=== PATIENT | male | born 1980 | race Caucasian/White ===

== ENCOUNTER 2017-03-26 14:09 | Emergency (ER) | payer OTHER ==
[~2017-03-26] VITALS: Ht 172.7 cm; Wt 63.5 kg
[2017-03-26 14:14] VITALS: BP 111/67
--- NOTE | 2017-03-26 14:41 | ED ANKLE/FOOT INJURY COMPLAINT ---
History of Present Illness General Chief Complaint: Foot or Ankle Injury Stated Complaint: L FT INJURY Source: patient, old records Exam Limitations: no limitations Vital Signs & Intake/Output Vital Signs & Intake/Output Vital Signs Date Time Temp Pulse Resp B/P B/P Pulse O2 O2 Flow FiO2 Mean Ox Delivery Rate 03/26 1414 98.6 73 15 111/67 95 Room Air Room Air Allergies Coded Allergies: No Known Allergies (03/26/17) Triage Note: PT FOR L ANKLE PAIN. PT ROLLED ANKLE 1 WEEK AGO AND NOW REPORTS SWELLING AND BRUISING. HURTS TO PUT WEIGHT ON IT. TOOK MOTRIN WITHOUT RELIEF. Triage Nurses Notes Reviewed? yes Occurred: last week Duration: week(s): (1), constant Timing: recent history Severity: mild Severity Numbers: 5 Pain/Injury Location: Left: Ankle. Method of Injury: twisted Modifying Factors: Improves With: rest. Worsens With: movement. Associated Symptoms: swelling HPI: 37-year-old male presents to ER complaining of persistent one-week history of left lateral ankle pain after he twisted his foot. He states the pain has been persistent he's been able to walk however states pain is worse with weightbearing. He is not taken anything for his symptoms. No foot toe knee or hip pain no back pain. He denies any other complaints she has not sought care for the symptoms until today. (PITER KNOX) Past History Travel History Traveled to [place] past 21 day No Medical History Any Pertinent Medical History? 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 No (PITER KNOX) Review of Systems Review of Systems Constitutional: Reports: see HPI. All Other Systems: Reviewed and Negative Comments Review of systems: See HPI, All other systems negative. Constitutional, no chills no fever, no malaise HEENT: no sore throat no congestion, no ear pain Cardiovascular: No chest pain , no palpitation Skin: no rashes, no change in skin Respiratory: No dyspnea no cough no sputum no hemoptysis GI: No nausea no vomiting, Muscle skeletal: joint pain, no joint swelling, no back pain, no neck pain, Neurologic: no headache Psych: No stress Heme/endocrine: No bruising Immunology: No lymphadenopathy (PITER KNOX) Physical Exam Physical Exam General Appearance: well developed/nourished, no apparent distress, alert Leg/Knee/Thigh Left: normal range of motion Comments: Well-developed well-nourished patient in no apparent distress. HEENT: Atraumatic, extraocular motion intact Neck: Supple, FROM Back: FROM Cardiovascular: Regular rate and rhythms no murmurs rubs Respiratory: CNo respiratory distress. Patient speaking in full complete sentences. Breath sounds clear to auscultation bilaterally: NO W/R/R Upper Extremities: full range of motion Hip/Pelvis: Atraumatic/Stable. FROM. No pain with pelvic compression Knee: Atraumatic/stable. FROM. No joint swelling, no effusion. No laxity.No pain with ROM Leg: Atraumatic. Nontender. No edema, 5 out of 5 strength in the lower extremity, normal dorsiflexion of great toe bilaterally, gross sensation is intact, Ankle/Foot: Ankle with moderate tenderness laterally over the lateral ligaments. No bony tenderness. No medial tenderness. Range of motion is near full but somewhat limited due to pain. No instability is noted. Skin is intact, No swelling, No ecchymosis noted. The foot is neurovascularly intact with sensation and motor grossly intact. There is no foot tenderness or fifth metatarsal tenderness. Able to move all toes. Palpable and intact achilles tendon. There is no proximal tib/fib tenderness Pulses: Normal/equal DP/PT pulses bilaterally. Brisk cap refill Neuro: awake, alert, and oriented to person, place and time. There were no obvious focal neurologic abnormalities. Skin: Warm & dry;No appreciable rash on exposed skin Psych: Mood affect normal, normal memory normal judgment. (PITER KNOX) Progress Differential Diagnosis: fracture, dislocation, sprain, contusion, compartmental syndrome Plan of Care: Orders Procedure Date/time Status Durable Medical Equipment 03/26 1511 Active Discussed with patient his x-ray results need for Rice. Crutches Jung wrap applied advised follow-up with orthopedist if symptoms persist. (PITER KNOX) Diagnostic Imaging: Viewed by Me: Radiology Read. Discussed w/RAD: Radiology Read. Radiology Impression: PATIENT: LARISSA SANCHEZ PRESENT AGE: 37 PATIENT ACCOUNT NO: [id number] : 81 LOCATION: [facility] ORDERING PHYSICIAN: PITER TAN SERVICE DATE: 03/26/17 EXAM TYPE: RAD - XRY- ANKLE 3 OR MORE VIEWS L EXAMINATION: XR ANKLE, LEFT CLINICAL INFORMATION: Pain COMPARISON: 09/01/2007 TECHNIQUE: AP, lateral, and mortise views of the left ankle. FINDINGS: There is no acute fracture or dislocation of the left ankle. The ankle mortise is normal and symmetric in appearance. The subtalar joint is unremarkable. There is mild soft tissue swelling along the anterior aspect of the ankle joint. IMPRESSION: No acute fracture or dislocation. DICTATED BY: THERESE LOZADA MD DATE/TIME DICTATED:03/26/171500 FEEDER SWITCHBOARD OPERATOR:NIGEL DATE/TIME TRANSCRIBED:03/26/171500 CONFIDENTIAL, DO NOT COPY WITHOUT APPROPRIATE AUTHORIZATION. <Electronically signed in Other Vendor System> SIGNED BY: THERESE LOZADA MD 03/26/17 1506 (PITER KNOX) Departure Departure Time of Disposition: 1509 Disposition: HOME OR SELF CARE Condition: Stable Clinical Impression Primary Impression: Ankle sprain Referrals: JOHNY DESAI,MAURO Toney. PATIENT HAS NO PRIMARY CARE DR (PCP/Family) Additional Instructions: REST, ICE, TYLENOL OR MOTRIN. JUNG WRAP CRUTCHES DISCUSSED. FOLLOW UP WITH ORTHOPEDIST DR LOPEZ IF SYMPTOMS PERSIST. RETURN WITH ANY CONCERNS Departure Forms: Customer Survey General Discharge Information (PITER KNOX) PA/WORKERS COMPENSATION ADJUSTER Co-Sign Statement Statement: ED Attending supervision documentation- I saw and evaluated the patient. I have also reviewed all the pertinent lab results and diagnostic results. I agree with the findings and the plan of care as documented in the PA's/WORKERS COMPENSATION ADJUSTER's documentation. x I have reviewed the ED Record and agree with the PA's/WORKERS COMPENSATION ADJUSTER's documentation. [] Additions or exceptions (if any) to the PAs/WORKERS COMPENSATION ADJUSTER's note and plan are summarized below: [] (CASIMIRO DESAI,ALEXANDER)
--- NOTE | 2017-03-26 15:06 | RADIOLOGY REPORT ---
EXAMINATION: XR ANKLE, LEFT CLINICAL INFORMATION: Pain COMPARISON: 09/01/2007 TECHNIQUE: AP, lateral, and mortise views of the left ankle. FINDINGS: There is no acute fracture or dislocation of the left ankle. The ankle mortise is normal and symmetric in appearance. The subtalar joint is unremarkable. There is mild soft tissue swelling along the anterior aspect of the ankle joint. IMPRESSION: No acute fracture or dislocation.
== END 2017-03-26 15:26 ==
LOC: ERH 14:09
DX: S93.402A Sprain of unspecified ligament of left ankle, initial encounter (principal); X58.XXXA Exposure to other specified factors, initial encounter; Y92.9 Unspecified place or not applicable; Y93.9 Activity, unspecified
CPT/HCPCS: 73610-LT

== ENCOUNTER 2018-07-03 10:07 | Emergency (ER) | payer OTHER ==
[~2018-07-03] VITALS: Ht 177.8 cm; Wt 61.2 kg
[~2018-07-03 10:07] MED LIST: PREDNISONE20 M1 PO; PROVENTIL HFA6.7 GM INH; ROBITUSSIN15 MG PO; ZITHROMAX250 M2 PO
[2018-07-03 11:32] LABS: ABSOLUTE BASOPHIL COUNT 0.1 /CUMM (0.0-0.2); ABSOLUTE EOSINOPHIL COUNT 0.2 /CUMM (0.0-0.7); ABSOLUTE GRANULOCYTE CT 6.1 /CUMM (1.4-6.5); ABSOLUTE MONOCYTE COUNT 0.9 /CUMM (0.10-0.60); BASOPHIL % 0.7 % (0.0-2.0); EOSINOPHIL % 2.4 % (0-5); GRANULOCYTE % 65.8 % (42.2-75.2); HEMATOCRIT 38.1 % (42-52); MEAN CORPUSCULAR HGB 30.4 PG (27.0-31.0); MEAN CORPUSCULAR HGB CONC 34.1 G/DL (33.0-37.0); MEAN CORPUSCULAR VOLUME 89.2 FL (80.0-94.0); MEAN PLATELET VOLUME 8.9 FL (7.4-10.4); PLATELET COUNT 273 /CUMM (130-400); RBC DISTRIBUTION WIDTH 13.9 % (11.5-14.5); RED BLOOD CELL CT 4.28 /CUMM (4.70-6.10); WHITE BLOOD CELL COUNT 9.3 /CUMM (4.8-10.8)
[2018-07-03 11:42] LABS: PTT 33 SEC (25-37)
--- NOTE | 2018-07-03 13:01 | CT SCAN REPORT ---
EXAMINATION: CT ABDOMEN AND PELVIS WITH AND WITHOUT CONTRAST CLINICAL INFORMATION: Diffuse lower abdominal pain. Bright red blood per rectum. Presumptive diagnosis of GI bleeding. COMPARISON: CT scan of the abdomen and pelvis dated 11/08/2006. TECHNIQUE: Multidetector CT volumetric acquisition of the abdomen and pelvis was performed before and after the administration of 95 mL of intravenous Optiray 320. The study was performed as a 3 phase exam with precontrast, arterial phase and three-minute delay images obtained. The data set was reformatted in the sagittal and coronal planes and reviewed on an independent workstation. 3-D imaging was not performed. DLP: 594.74 mGy-cm. FINDINGS: LOWER CHEST: Included lung bases unremarkable. LIVER, GALLBLADDER, BILIARY TREE: Liver normal size and attenuation. No focal cystic or solid mass or intra-or extrahepatic ductal dilatation. Hepatic and portal veins patent. Gallbladder partially distended and within normal limits. PANCREAS: Normal. No ductal dilatation, mass, or surrounding stranding. SPLEEN: Normal size and appearance. Splenic vein patent. Small accessory splenule is seen along the inferior margin of the spleen. ADRENAL GLANDS AND KIDNEYS: Adrenal glands normal. Kidneys bilaterally symmetric in size and function. No focal mass, hydronephrosis, nephrolithiasis or perinephric stranding. URETERS AND BLADDER: Ureters decompressed and within normal limits. Bladder partially distended and within normal limits. PELVIC ORGANS: Unremarkable. GASTROINTESTINAL TRACT: Normal. Small and large bowel loops decompressed. Appendix is surgically absent. LYMPHOVASCULAR STRUCTURES: Abdominal aorta normal in caliber and appearance. The branch vessels are widely patent. No periaortic collections. No abdominal or pelvic adenopathy or free fluid collection. BONES: Mild loss in height of the L1 and L5 vertebral bodies is now seen with prominent Schmorl's nodes, new compared to 11/08/2006. Bony structures otherwise unremarkable. IMPRESSION: Unremarkable examination. No source of active bleeding is identified on this exam. Close clinical correlation is requested to assess need for additional follow-up imaging.
--- NOTE | 2018-07-03 13:08 | ED GI/GU/ABDOMINAL COMPLAINT ---
History of Present Illness General Chief Complaint: Abdominal Pain/Flank Pain Stated Complaint: RECTAL BLEED Source: patient Exam Limitations: no limitations Vital Signs & Intake/Output Vital Signs & Intake/Output ED Intake and Output 07/04 0000 07/03 1200 Intake Total 0 Output Total Balance 0 Intake, Oral 0 Patient 135 lb Weight Weight Estimated Measurement Method Allergies Coded Allergies: No Known Allergies (07/04/18) Reconcile Medications No Known Home Medications Triage Note: PT TO ED C/O RECTAL BLEEDING SINCE LAST NIGHT. HAS HAPPENED X 2 SINCE LAST NIGHT. DENIES N/V. DENIES S/S. Triage Nurses Notes Reviewed? yes Onset: Abrupt Duration: day(s): (1), constant, continues in ED Timing: single episode today Quality/Severity: cramping, fullness Severity Numbers: 7 Location: generalized abdomen Radiation: no radiation Activities at Onset: none Prior Abdominal Problems: none No Modifying Factors: none HPI: 38-year-old male with no medical history presents for evaluation of rectal bleeding. Patient reports that on 2 occasions today during a bowel movement he noticed bright red blood in the toilet. He denies any diarrhea but clots or melena. He is not anticoagulated. He denies any pain during the bowel movements. He does report some lower abdominal pain diffusely. No dizziness or lightheadedness no fevers. He's never had this before. No family history of colon cancer. Past History Travel History Traveled to [place] past 21 day No Medical History Any Pertinent Medical History? 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 No Review of Systems Review of Systems Constitutional: Reports: no symptoms. EENTM: Reports: no symptoms. Respiratory: Reports: no symptoms. Cardiovascular: Reports: no symptoms. GI: Reports: see HPI, abdominal pain. Genitourinary: Reports: no symptoms. Musculoskeletal: Reports: no symptoms. Skin: Reports: no symptoms. Neurological/Psychological: Reports: no symptoms. Hematologic/Endocrine: Reports: no symptoms. Immunologic/Allergic: Reports: no symptoms. All Other Systems: Reviewed and Negative Physical Exam Physical Exam General Appearance: well developed/nourished, no apparent distress, alert, awake Head: atraumatic, normal appearance Eyes: Bilateral: normal appearance, PERRL, EOMI. Ears, Nose, Throat, Mouth: moist mucous membrane Neck: normal inspection, supple, full range of motion Respiratory: normal breath sounds, chest non-tender, no respiratory distress, lungs clear Cardiovascular: regular rate/rhythm, normal peripheral pulses Peripheral Pulses: 2+ radial (R), 2+ radial (L) Gastrointestinal: normal bowel sounds, soft, no organomegaly, tenderness (LOWER ABDOMEN ) Rectal: normal inspection, normal rectal tone, heme positive stool (NO GROSS BLOOD) Back: normal inspection, normal range of motion, no vertebral tenderness Extremities: normal range of motion Neurologic/Psych: no motor/sensory deficits, awake, alert, oriented x 3, normal gait Skin: intact, normal color, warm/dry Core Measures ACS in differential dx? No Sepsis Present: No Sepsis Focused Exam Completed? No Progress Differential Diagnosis: appendicitis, biliary colic, bowel obstruction, colon cancer, cholecystitis, diverticulitis, gastritis, hernia, inflamm bowel dis, pancreatitis, prostatitis, peptic ulcer, PUD/GERD, SBO, testicular torsion, ureterolithiasis, urinary retention, urethritis, UTI/pyelo Plan of Care: Orders Procedure Date/time Status Add-on Test (ER Only) 07/03 1102 Active MISTAKE 07/03 1010 Active PARTIAL THROMBOPLASTIN TIME 07/03 1010 Complete PROTHROMBIN TIME 07/03 1010 Complete LIPASE 07/03 1010 Complete C-REACTIVE PROTEIN 07/03 1010 Complete COMPREHENSIVE METABOLIC PANEL 07/03 1010 Complete CBC WITHOUT DIFFERENTIAL 07/03 1010 Complete Laboratory Tests 07/03/18 1109: Anion Gap 7, Estimated GFR > 60, BUN/Creatinine Ratio 23.8, Glucose 101 H, Calcium 9.2, Total Bilirubin 0.2, AST 27, ALT 23, Alkaline Phosphatase 70, C- Reactive Prot, Quant 0.6, Total Protein 6.5, Albumin 4.0, Globulin 2.5, Albumin/ Globulin Ratio 1.6, Lipase 22 L, PT 10.0, INR 0.92, APTT 33, CBC w Diff NO MAN DIFF REQ, RBC 4.28 L, MCV 89.2, MCH 30.4, MCHC 34.1, RDW 13.9, MPV 8.9, Gran % 65.8, Lymphocytes % 21.5, Monocytes % 9.6 H, Eosinophils % 2.4, Basophils % 0.7 , Absolute Granulocytes 6.1, Absolute Lymphocytes 2.0, Absolute Monocytes 0.9 H , Absolute Eosinophils 0.2, Absolute Basophils 0.1 Patient is here with bright red blood per rectum on 2 occasions today. He is not anticoagulated. He also has no abdominal pain. Never had this before. He is not orthostatic vital signs are stable. Basic blood work was obtained and shows a stable hemoglobin. A CTA of the abdomen and pelvis is negative for acute findings. Patient is not orthostatic. He appears clinically well. He'll be referred to gastroenterology for further evaluation and treatment discussed return precautions case discussed with Dr. Graham he agrees. Diagnostic Imaging: Viewed by Me: CT Scan. Discussed w/RAD: CT Scan. Radiology Impression: PATIENT: LARISSA SANCHEZ PRESENT AGE: 38 PATIENT ACCOUNT NO: [id number] : 81 LOCATION: [facility] ORDERING PHYSICIAN: Deon TAN SERVICE DATE: 07/03/18 EXAM TYPE: CAT - CT ABD & PELVIS ANGIOGRAM EXAMINATION: CT ABDOMEN AND PELVIS WITH AND WITHOUT CONTRAST CLINICAL INFORMATION: Diffuse lower abdominal pain. Bright red blood per rectum. Presumptive diagnosis of GI bleeding. COMPARISON: CT scan of the abdomen and pelvis dated 11/08/2006. TECHNIQUE: Multidetector CT volumetric acquisition of the abdomen and pelvis was performed before and after the administration of 95 mL of intravenous Optiray 320. The study was performed as a 3 phase exam with precontrast, arterial phase and three-minute delay images obtained. The data set was reformatted in the sagittal and coronal planes and reviewed on an independent workstation. 3-D imaging was not performed. DLP: 594.74 mGy-cm. FINDINGS: LOWER CHEST: Included lung bases unremarkable. LIVER, GALLBLADDER, BILIARY TREE: Liver normal size and attenuation. No focal cystic or solid mass or intra-or extrahepatic ductal dilatation. Hepatic and portal veins patent. Gallbladder partially distended and within normal limits. PANCREAS: Normal. No ductal dilatation, mass, or surrounding stranding. SPLEEN: Normal size and appearance. Splenic vein patent. Small accessory splenule is seen along the inferior margin of the spleen. ADRENAL GLANDS AND KIDNEYS: Adrenal glands normal. Kidneys bilaterally symmetric in size and function. No focal mass, hydronephrosis, nephrolithiasis or perinephric stranding. URETERS AND BLADDER: Ureters decompressed and within normal limits. Bladder partially distended and within normal limits. PELVIC ORGANS: Unremarkable. GASTROINTESTINAL TRACT: Normal. Small and large bowel loops decompressed. Appendix is surgically absent. LYMPHOVASCULAR STRUCTURES: Abdominal aorta normal in caliber and appearance. The branch vessels are widely patent. No periaortic collections. No abdominal or pelvic adenopathy or free fluid collection. BONES: Mild loss in height of the L1 and L5 vertebral bodies is now seen with prominent Schmorl's nodes, new compared to 11/08/2006. Bony structures otherwise unremarkable. IMPRESSION: Unremarkable examination. No source of active bleeding is identified on this exam. Close clinical correlation is requested to assess need for additional follow-up imaging. DICTATED BY: Zak DESAI,Nicci Lopez DATE/TIME DICTATED:07/03/181234 DINING ROOM MAID:NIGEL DATE/TIME TRANSCRIBED:07/03/181234 Initial ED EKG: none Departure Departure Disposition: HOME OR SELF CARE Condition: Stable Clinical Impression Primary Impression: Rectal bleeding Referrals: Kevin DESAI,Hansel Santizo Patient Has No Primary Care Dr (PCP/Family) Additional Instructions: Make a follow-up appointment with Dr. Duke outfitter cabin as soon as possible. Call his office today. Monitor symptoms. If you notice large amounts of bleeding, blood clots, severe abdominal pain feeling to get a passout or have any other concerns return immediately. Please go over all results of today's visit with your primary care doctor. Contact your primary care doctor to let them know you were here in the emergency room. There may be nonspecific findings which may not be related to your visit today here in the emergency room but may require further evaluation and chronic monitoring by your primary care doctor. If you had a laceration today the chance of foreign body always remains. You should follow-up with your primary care doctor for recheck in 3-5 days for a wound check. If you had an x-ray done there is a chance that a fracture could have been missed on initial read and you should follow-up with your primary care doctor for repeat x-rays if symptoms persist. If your blood pressure was elevated here in the emergency room please have rechecked by her primary care doctor within the next 48 hours by your primary care doctor. If you were prescribed a narcotic here in the emergency room or any type of controlled substances you're not allowed to drive while taking this medication or operate any type of heavy machinery. Narcotics can make you feel lightheaded dizziness nausea and can cause constipation. You may need to picking machine operator helper a stool softener. Thank you for choosing [facility] emergency room. Please return to the emergency room immediately if you have any other concerns worsening of symptoms. Departure Forms: Customer Survey General Discharge Information Prescriptions: Current Visit Scripts No Known Home Medications
[2018-07-03 13:32] VITALS: BP 123/69
== END 2018-07-03 13:33 ==
LOC: ERH 10:07
PROVIDERS: Physician Assistant Medical
DX: K62.5 Hemorrhage of anus and rectum (principal); Z87.891 Personal history of nicotine dependence
CPT/HCPCS: 74174

== ENCOUNTER 2018-07-04 16:00 | Emergency (ER) | payer SELFPAY ==
[~2018-07-04] VITALS: Ht 177.8 cm; Wt 61.2 kg
[2018-07-04 16:51] LABS: ABSOLUTE BASOPHIL COUNT 0.1 /CUMM (0.0-0.2); ABSOLUTE EOSINOPHIL COUNT 0.4 /CUMM (0.0-0.7); ABSOLUTE GRANULOCYTE CT 5.8 /CUMM (1.4-6.5); ABSOLUTE LYMPH COUNT 3.3 /CUMM (1.2-3.4); ABSOLUTE MONOCYTE COUNT 1.3 /CUMM (0.10-0.60); BASOPHIL % 0.5 % (0.0-2.0); EOSINOPHIL % 3.7 % (0-5); GRANULOCYTE % 53.5 % (42.2-75.2); HEMATOCRIT 36.6 % (42-52); MEAN CORPUSCULAR HGB 30.4 PG (27.0-31.0); MEAN CORPUSCULAR HGB CONC 33.9 G/DL (33.0-37.0); MEAN CORPUSCULAR VOLUME 89.8 FL (80.0-94.0); MEAN PLATELET VOLUME 8.6 FL (7.4-10.4); PLATELET COUNT 258 /CUMM (130-400); RED BLOOD CELL CT 4.07 /CUMM (4.70-6.10); WHITE BLOOD CELL COUNT 10.8 /CUMM (4.8-10.8)
[2018-07-04 16:55] LABS: PTT 34 SEC (25-37)
--- NOTE | 2018-07-04 19:40 | ED GI/GU/ABDOMINAL COMPLAINT ---
History of Present Illness General Chief Complaint: General Adult Stated Complaint: RECTAL BLEEDING WORSENED.PT SEEN YESTERDAY Source: patient, old records Exam Limitations: no limitations Vital Signs & Intake/Output Vital Signs & Intake/Output Vital Signs Date Time Temp Pulse Resp B/P B/P Pulse O2 O2 Flow FiO2 Mean Ox Delivery Rate 07/04 2143 98.4 94 16 123/84 95 Room Air 07/04 2142 94 123/84 07/04 1607 96.7 67 15 129/70 96 Room Air Room Air ED Intake and Output 07/05 0000 07/04 1200 Intake Total 0 Output Total Balance 0 Intake, Oral 0 Patient 135 lb Weight Weight Reported by Patient Measurement Method Allergies Coded Allergies: No Known Allergies (07/04/18) Reconcile Medications No Known Home Medications Triage Note: PT TO ED FOR WORSENING RECTAL BLEEDING, "NOW THERE'S CLOTS" X 36 HOURS. RECENTLY WORKED UP IN ED FOR SAME BUT NOW PT HAS PAIN SINCE THIS MORNING WITH WEAKNESS. Triage Nurses Notes Reviewed? yes Onset: Gradual Duration: day(s): Timing: recent history Quality/Severity: moderate HPI: 38-year-old male presents emergency department complaining of worsening rectal bleeding since yesterday. Patient states that he started having rectal bleeding yesterday, was seen and evaluated here in The emergency department. Patient states that he was referred to GI, he has called however his appointment is not until 07/09. Patient states that he has had a total of 5 bowel movements with bright red blood, today he started seeing blood clots in his stool. Also reports lower abdominal pain which began yesterday and is worse today. She states he felt off balance when he was walking today. He has been tolerating PO however does report nausea. No episodes of vomiting. Patient denies fevers, chills, urinary symptoms. (Esthela Benedict) Past History Travel History Traveled to [place] past 21 day No Medical History Any Pertinent Medical History? none Neurological: NONE EENT: NONE Cardiovascular: NONE Respiratory: NONE Gastrointestinal: NONE Hepatic: NONE Renal: NONE Musculoskeletal: NONE Psychiatric: NONE Endocrine: NONE Blood Disorders: NONE Cancer(s): NONE CIRCULATION CLERK/Reproductive: NONE Surgical History Surgical History: none Psychosocial History What is your primary language Gabonese Tobacco Use: Current Daily Use Daily Tobacco Use Amount/Type: => 5 Cigarettes daily Family History Hx Contributory? No (Esthela Benedict) Review of Systems Review of Systems Constitutional: Reports: see HPI. EENTM: Reports: no symptoms. Respiratory: Reports: no symptoms. Cardiovascular: Reports: no symptoms. GI: Reports: see HPI. Genitourinary: Reports: no symptoms. Musculoskeletal: Reports: no symptoms. Skin: Reports: no symptoms. Neurological/Psychological: Reports: no symptoms. Hematologic/Endocrine: Reports: no symptoms. Immunologic/Allergic: Reports: no symptoms. All Other Systems: Reviewed and Negative (Debbie TAN,Esthela Adan) Physical Exam Physical Exam General Appearance: well developed/nourished, no apparent distress, alert, awake Head: atraumatic, normal appearance Eyes: Bilateral: normal appearance. Ears, Nose, Throat, Mouth: hearing grossly normal Neck: normal inspection, supple, full range of motion Respiratory: normal breath sounds, no respiratory distress, lungs clear Cardiovascular: regular rate/rhythm Gastrointestinal: normal bowel sounds, soft, no organomegaly, bilateral lower abdominal tenderness without guarding, no rebound tenderness Rectal: deferred Back: normal inspection, normal range of motion Extremities: normal range of motion Neurologic/Psych: awake, alert, oriented x 3 Skin: intact, normal color, warm/dry Core Measures ACS in differential dx? No Sepsis Present: No Sepsis Focused Exam Completed? No (Esthela Benedict) Progress Differential Diagnosis: bowel obstruction, diverticulitis, gastritis, hernia, hemorrhoids, inflamm bowel dis, peptic ulcer, PUD/GERD, perforated viscous, SBO, colitis, GI bleed, diverticulosis Plan of Care: Orders Procedure Date/time Status PARTIAL THROMBOPLASTIN TIME 07/04 161 Complete PROTHROMBIN TIME 07/04 161 Complete CBC WITHOUT DIFFERENTIAL 07/04 161 Complete BASIC METABOLIC PANEL 07/04 1619 Complete Laboratory Tests 07/04/18 1627: Anion Gap 6, Estimated GFR > 60, BUN/Creatinine Ratio 18.9, Glucose 84, Calcium 9.4, PT 10.0, INR 0.92, APTT 34, CBC w Diff NO MAN DIFF REQ, RBC 4.07 L, MCV 89.8, MCH 30.4, MCHC 33.9, RDW 14.0, MPV 8.6, Gran % 53.5, Lymphocytes % 30.6, Monocytes % 11.7 H, Eosinophils % 3.7, Basophils % 0.5, Absolute Granulocytes 5.8, Absolute Lymphocytes 3.3, Absolute Monocytes 1.3 H, Absolute Eosinophils 0.4, Absolute Basophils 0.1 She was seen and evaluated yesterday at CT scan performed which was stable. Today the patient's labs are stable, no acute anemia. Patient will require GI follow-up for likely colonoscopy to assess his bleeding. Given his stable labs and stable vital signs outpatient follow-up is still appropriate. Patient is seen sleeping while waiting for further results. He is in no acute distress, nontoxic appearing. No tachycardia, no hypotension, orthostatic vital signs are negative, patient ambulates without distress. There are given information regarding red flag symptoms and return to return to the emergency department. They agree with the plan of care. Discussed all findings with DR. Lechuga who agrees with this plan. Initial ED EKG: none (Debbie TAN,Esthela Adan) Departure Departure Disposition: HOME OR SELF CARE Condition: Stable Clinical Impression Primary Impression: Rectal bleeding Secondary Impressions: Abdominal pain Qualifiers: Abdominal location: lower abdomen, unspecified Qualified Code: R10.30 - Lower abdominal pain, unspecified Referrals: Patient Has No Primary Care Dr (PCP/Family) Additional Instructions: Call for GI doctor tomorrow to see if you can be seen before Monday. Follow up with GI doctor as soon as possible. Increase fluids and rest. Monitor for signs of worsening symptoms including increased abdominal pain, pale in color, feeling lightheaded or as though he may pass out, fainting, shortness of breath. With any of these symptoms or other concerns please return to the emergency department. Please note that there might be incidental findings in your evaluation that are unrelated to the current emergency department visit. Please notify your primary care doctor about this emergency department visit in order to obtain and review all of the testing performed so that these incidental findings can be monitored as needed. If you had an x-ray performed, please understand that some fractures may not be seen on the initial set of x-rays. If your symptoms persist you might need a repeat set of x-rays to check for such a fracture. If you had a laceration evaluated, please understand that foreign bodies such as glass or wood may not be visible to the naked eye or on plain x-rays. If the wound becomes red, swollen, increasingly more painful or if there is any drainage from the wound, please have it reevaluated by a physician for the possibility of a retained foreign body. If you're unable to follow up as outlined in the discharge instructions please return to the emergency department. Thank you for choosing the [facility] Emergency Department for your care. It was a pleasure to serve you today. Departure Forms: Customer Survey General Discharge Information Prescriptions: Current Visit Scripts No Known Home Medications (Debbie TAN,Esthela Adan) PA/WIND OPERATIONS MANAGER Co-Sign Statement Statement: ED Attending supervision documentation- I saw and evaluated the patient. I have also reviewed all the pertinent lab results and diagnostic results. I agree with the findings and the plan of care as documented in the PA's/WIND OPERATIONS MANAGER's documentation. x I have reviewed the ED Record and agree with the PA's/WIND OPERATIONS MANAGER's documentation. [] Additions or exceptions (if any) to the PAs/WIND OPERATIONS MANAGER's note and plan are summarized below: [] (Alexandrea DESAI,Ward)
[2018-07-04 21:43] VITALS: BP 123/84
== END 2018-07-04 21:53 ==
LOC: ERH 16:00
PROVIDERS: Physician Assistant Medical
DX: K62.5 Hemorrhage of anus and rectum (principal)